=== PATIENT | female | born 1950 | race Caucasian/White ===

== ENCOUNTER 2017-12-11 15:46 | Emergency (ER) | payer OTHER ==
[2017-12-11] MEDS ORDERED: fentaNYL 100 MCG/2 ML INJ IVP ONE ×2 (17:16→18:16)
[2017-12-11] MEDS ORDERED: NS 1,000 ML IV ONE (17:17)
[2017-12-11] MEDS ORDERED: ONDANSETRON 4 MG/2 ML VIAL IVP ONE ×2 (17:17→18:17)
[2017-12-11 17:43] LABS: PLATELET COUNT 320 10^3/uL (150-400)
--- NOTE | 2017-12-11 18:31 | EDPHY ---
H & P Stated Complaint: r flank pain/nausea/vomiting - Personal History Current Tetanus Diphtheria and Acellular Pertussis (TDAP): Unsure - Medical/Surgical History Hx Asthma: No Hx Chronic Respiratory Disease: No Hx Diabetes: Yes Hx Cardiac Disease: No Hx Renal Disease: No Hx Cirrhosis: No Hx Alcoholism: No Hx HIV/AIDS: No Hx Splenectomy or Spleen Trauma: No Other PMH: breast cancer/ - Social History Smoking Status: Former smoker <Tino Donis - Last Filed: 12/12/17 00:57> <Sia Cartagena - Last Filed: 12/12/17 22:22> Time Seen by Provider: 12/11/17 16:30 HPI/ROS: Chief complaint: Right flank pain History of present illness: This is a 67-year-old female who presents to the emergency department for evaluation of right flank pain. She reports the onset of symptoms earlier today. She has had associated nausea and vomiting. She believes the nausea and vomiting is secondary to the pain. She was at a friend' s house eating food, she reports the house was very warm and she believes this may have precipitated everything. She denies other potential precipitating factors. She denies alleviating factors. She denies other associated signs or symptoms including no fevers, no urinary symptoms, no abnormal vaginal discharge or bleeding, no diarrhea or constipation. She has never had similar. Review of systems: A 10 point review of systems was obtained and other than described above was negative (Tino Donis) - Physical Exam Exam: General Appearance: Alert, nontoxic. Eyes: Pupils equal and round no pallor or injection. ENT, Mouth: Mucous membranes moist. Respiratory: There are no retractions, lungs are clear to auscultation. Cardiovascular: Regular rate and rhythm. Gastrointestinal: Abdomen is soft and non tender, no masses, bowel sounds normal. Genitourinary: No CVA tenderness Neurological: Alert and oriented x4. Strength and sensation intact and symmetrical. Skin: Warm and dry, no rashes. Musculoskeletal: Neck is supple non tender. Extremities are symmetrical, full range of motion. Psychiatric: Patient is oriented X 3, there is no agitation. (Tino Donis) Constitutional: Initial Vital Signs Temperature (C) 36.5 C 12/11/17 16:06 Heart Rate 68 12/11/17 16:06 Respiratory Rate 18 03/17/18 16:06 Blood Pressure 143/95 H 12/11/17 16:06 O2 Sat (%) 97 12/11/17 16:06 O2 Delivery Mode Room Air O2 (L/minute) 2 Allergies/Adverse Reactions: shellfish derived Allergy (Verified 12/11/17 16:05) METAL Allergy (Uncoded 05/09/15 11:32) Home Medications: Medication Instructions Recorded Herbals/Supplements -Info Only 1 ea PO DAILY 05/09/15 Ibuprofen [Motrin] 200 - 600 mg PO DAILY PRN 05/09/15 LORazepam [Ativan] 0.5 mg PO DAILY PRN 05/09/15 Omeprazole [Prilosec 20 mg] 20 mg PO DAILY18 05/09/15 Ranitidine HCl [Zantac] 150 mg PO DAILY PRN 05/09/15 Sennosides/Docusate Sodium 1 tab PO DAILY PRN 05/09/15 [Senokot-S] Simvastatin [Zocor] 40 mg PO HS 05/09/15 Zolpidem Tartrate [Ambien] 2.5 mg PO HS PRN 05/09/15 metFORMIN HCL [Metformin HCl ER] 500 mg PO DAILY18 05/09/15 Cyclobenzaprine [Flexeril 10 MG 10 mg PO TID PRN #15 tab 12/11/17 (*)] Raloxifene HCl 12/11/17 Medical Decision Making - Diagnostics Imaging: Discussed imaging studies w/ call worker Radiologist <Tino Donis - Last Filed: 12/12/17 00:57> <Sia Cartagena - Last Filed: 12/12/17 22:22> ED Course/Re-evaluation: Patient is seen in conjunction with my secondary supervising physician Dr. Sia Cartagena. Patient presents to the emergency department with right flank pain with associated nausea and vomiting. She is nontoxic. Evaluation is largely non specific. At this time I do not appreciate evidence of significant underlying pathology requiring further emergency department intervention or inpatient management. She will be discharged home. She is to follow up with her primary care doctor for recheck. Return precautions given. (Tino Donis) Differential Diagnosis: Included but not limited to urinary tract infection, kidney stone, pancreatitis , biliary tract disease, colitis (Tino Donis) Other Provider: [id number]: I evaluated and participated in the management of the patient. I also evaluated the patient independently. My co-signature indicates that I have reviewed this chart and I agree with the findings and plan of care as documented. My personal H&P findings include: 67-year-old female who reports that about 6 hr ago she began to have right-sided lower back pain which was quite severe and made her nauseous. Pain seems worse with breathing and twisting her torso. It is in the right flank area. It does not radiate. She has been otherwise well and at her baseline with the exception of chronic knee pain for which she had a synovial injection the left knee yesterday. On examination, she denies any chest pain or shortness of breath. She denies any anterior abdominal pain. She reports discomfort lateral right flank area. Lungs are clear to auscultation, heart regular rate and rhythm, abdomen soft and nontender. She does have some tenderness of the paraspinal region chest to the right the mid lumbar spine. No radiation into the legs. Extensive evaluation emergency department including lab work, EKG, troponin, and CT scan, and urinalysis all of which were reassuring. Patient will be discharged with treatment for musculoskeletal back sprain. She understands that this diagnosis is provisional. She understands reasons to return to the emergency department including worsening discomfort, development of associated symptoms such as chest pain, shortness of breath, anterior abdominal pain, vomiting, diarrhea, fever, chills, or diaphoresis. (Sia Cartagena) - Data Points Laboratory Results: Laboratory Results 12/11/17 16:00 12/11/17 16:00 Medications Given: Discontinued Medications Cyclobenzaprine HCl (Flexeril) 10 mg PO EDNOW ONE Stop: 12/11/17 19:51 Last Admin: 12/11/17 19:51 Dose: 10 mg Fentanyl (Sublimaze) 50 mcg IVP EDNOW ONE Stop: 12/11/17 17:17 Last Admin: 12/11/17 17:23 Dose: 50 mcg Fentanyl (Sublimaze) 50 mcg IVP EDNOW ONE Stop: 12/11/17 18:17 Last Admin: 12/11/17 18:29 Dose: 50 mcg Sodium Chloride (Ns) 1,000 mls @ 0 mls/hr IV ONCE ONE; Wide Open PRN Reason: Protocol Stop: 12/11/17 17:18 Last Admin: 12/11/17 17:24 Dose: 1,000 mls Ketorolac Tromethamine (Toradol) 30 mg IM EDNOW ONE Stop: 12/11/17 20:18 Last Admin: 12/11/17 20:21 Dose: 30 mg Miscellaneous Medication (Icy Hot Lidocaine/Menthol 4%/1% Patch) 1 patch TD EDNOW ONE Stop: 12/11/17 19:51 Last Admin: 12/11/17 19:53 Dose: 1 patch Ondansetron HCl (Zofran) 4 mg IVP EDNOW ONE Stop: 12/11/17 17:18 Last Admin: 12/11/17 17:23 Dose: 4 mg Ondansetron HCl (Zofran) 4 mg IVP EDNOW ONE Stop: 12/11/17 18:18 Last Admin: 12/11/17 18:31 Dose: 4 mg Ondansetron HCl (Zofran Odt) 4 mg PO EDNOW ONE Stop: 12/11/17 20:18 Last Admin: 12/11/17 20:21 Dose: 4 mg Departure <Tino Donis - Last Filed: 12/12/17 00:57> <Sia Cartagena - Last Filed: 12/12/17 22:22> - Departure Disposition: Home, Routine, Self-Care Clinical Impression: Flank pain Condition: Good Instructions: Flank Pain (ED) Additional Instructions: Follow-up with your primary care doctor on Wednesday for recheck If symptoms worsen or new symptoms develop return to the emergency room for recheck Referrals: Genet Jain MD [Primary Care Provider] - As per Instructions Prescriptions: Cyclobenzaprine [Flexeril 10 MG (*)] 10 mg PO TID PRN #15 tab PRN Reason: Spasms Report Scribed for: Sia Cartagena Report Scribed by: Martha Vega Date of Report: 12/11/17 Time of Report: 18:31 <Sia Cartagena - Last Filed: 12/12/17 22:22>
--- NOTE | 2017-12-11 19:04 | CPEKG ---
Heart Rate: 62 RR Interval: 968 P-R Interval: 160 QRSD Interval: 142 QT Interval: 476 QTC Interval: 484 P Alsey: 46 QRS Alsey: -61 T Wave Alsey: 55 EKG Severity - ABNORMAL ECG - EKG Impression: SINUS RHYTHM EKG Impression: RBBB AND LAFB Electronically Signed By: Sia Cartagena 12-Dec-2017 00:45:30
[2017-12-11] MEDS ORDERED: LIDOCAINE 4%/MENTHOL 1% PATCH TD ONE ×2 (19:48→19:50)
[2017-12-11] MEDS ORDERED: CYCLOBENZAPRINE 10 MG TAB ONE (19:48)
[2017-12-11] MEDS ORDERED: CYCLOBENZAPRINE 10 MG TAB PO ONE (19:50)
[2017-12-11] MEDS ORDERED: KETOROLAC 30 MG/1 ML SDV IM ONE (20:17)
[2017-12-11] MEDS ORDERED: ONDANSETRON DISINTEGRATING 4 MG TAB PO ONE (20:17)
[2017-12-11 20:38] VITALS: BP 160/90; PULSE 61; RESP 15; TEMP 98.2; O2SAT 96
[2017-12-11] MEDS ORDERED: PATCH REMOVAL 1 EA PATCH TD SCH (21:00)
== END 2017-12-11 20:37 | disposition home or self-care (01) ==
DX: R10.9 Unspecified abdominal pain (principal); E86.9 Volume depletion, unspecified; E11.9 Type 2 diabetes mellitus without complications; Z79.84 Long term (current) use of oral hypoglycemic drugs; Z85.3 Personal history of malignant neoplasm of breast; Z87.891 Personal history of nicotine dependence
CPT/HCPCS: 74176; 93005; 96361; 96372; 96374; 96375; 96376; 99285; J1885; J2405; J3010

== ENCOUNTER → 2017-12-20 | Outpatient (CLI) | payer OTHER | LOC: BMCIMAGING 08:41 | PROVIDERS: ATTEND Internal Medicine | DX: M54.9 Dorsalgia, unspecified (principal); R11.10 Vomiting, unspecified; K76.0 Fatty (change of) liver, not elsewhere classified ==